=== PATIENT | male | born 1955 | race Caucasian/White ===

== ENCOUNTER 2021-12-16 11:04 | Emergency (ER) | payer MEDICARE, SELFPAY ==
[2021-12-16] VITALS (7 sets, daily range): BP systolic 210–258; BP diastolic 89–122; PULSE 52–71; RESP 16–18; TEMP 36.6; O2SAT 95–100; BMI 20.3
--- NOTE | 2021-12-16 11:14 | PC.NURSE ---
TARAS STOLL at
--- NOTE | 2021-12-16 11:26 | ECG_ITS ---
APPROVED REPORT Exam: Resting ECG HR:53 bpm ECG Measurements Heart Rate 53 AXES GA 185 P 52 QRSd 94 QRS -25 QT 421 T 49 QTc 403 Conclusion SINUS BRADYCARDIA BORDERLINE LEFT AXIS DEVIATION [QRS AXIS < -20] BORDERLINE ECG UNCONFIRMED REPORT Electronically signed by : Buddy Zarate MD 12/16/2021 22:34:32
--- NOTE | 2021-12-16 12:23 | [facility].EDGENADL ---
Discharge Plan Disposition Patient Disposition: Home, Self-Care Condition: Good Prescriptions Prescriptions: New lisinopril 20 mg tablet 20 mg PO DAILY Qty: 30 0RF Referrals Follow up/Referrals: Provider,Referral, MD [Primary Care Provider] - See instructions Clinical Impressions Clinical Impression: Asymptomatic hypertension Discharge ED Provider: Jaxon Mcclellan General Adult HPI General Chief complaint: Recheck/Abnormal Lab/Rx Stated complaint: high blood pressure Time Seen by Provider: 12/16/21 11:10 Mode of Arrival: Ambulatory Source of Information: Patient Limitations: No Limitations Description of Symptoms (Recalled from ER Triage Doc. by RN): to ed per pvt car with c/o elevated blood pressure pt was seen at clinic and told to come to ed due to b/p was to high. pt states he took his lisinopril 20mg this am. pt denies any c/o at present History of Present Illness HPI narrative: This 66-year-old male with history of hypertension presenting with asymptomatic hypertension. Patient went to clinic today, told his blood pressure was too high, so told to come to the ED. Patient denies any symptoms at this time, including chest pain, shortness of breath, neurologic deficits, weakness, or any other concerns. Related Data Previous Rx's Medication Instructions Recorded lisinopril 20 mg tablet 20 mg PO DAILY #30 tabs 12/16/21 Allergies Allergy/AdvReac Type Severity Reaction Status Date / Time No Known Allergies Allergy Verified 12/16/21 11:17 [facility] Social History Smoking Status: Current every day smoker alcohol intake: never current occupational status: unemployed Travel in the last 8 weeks: None ROS Obtained: Yes All systems reviewed & no additional complaints except as documented Physical Exam General General appearance: alert and in no apparent distress Head Head exam: atraumatic, normocephalic and normal inspection Eye Eye exam: Present normal appearance, PERRL and EOMI ENT ENT exam: Present normal exam, normal oropharynx, mucous membranes moist, TM's normal bilaterally and normal external ear exam Neck Neck exam: Present normal inspection, full ROM and trachea midline; Absent meningismus or lymphadenopathy Chest Chest inspection: Present normal inspection and symmetric chest wall rise; Absent tenderness Respiratory Respiratory exam: Present normal lung sounds bilaterally; Absent respiratory distress Cardiovascular Cardiovascular exam: Present regular rate and normal rhythm; Absent JVD Abdominal Exam Abdominal exam: Present soft and normal bowel sounds; Absent distention, tenderness or guarding Extremities Exam Extremities exam: Present normal inspection, full ROM and normal capillary refill; Absent calf tenderness Back Exam Back exam: Present normal inspection; Absent tenderness Neurological Exam Neurological exam: Present alert and oriented X3 Psychiatric Psychiatric exam: Present normal affect and normal mood Skin Skin exam: Present warm, dry, intact and normal color Lymphatic Lymphatic Findings: no adenopathy Medical Decision Making Mal Inquiry Pt receiving controlled substance: No Vital Signs: 12/16/21 11:06 12/16/21 11:11 12/16/21 11:31 Temperature 98 F Temperature Source Oral Pulse Rate 62 71 Pulse Rate [Radial] 68 Respiratory Rate 16 18 Blood Pressure 251/107 H 225/100 H Blood Pressure [Left Arm] 258/122 H Blood Pressure [Right Arm] 251/107 H Blood Pressure Mean 140 141 Blood Pressure Mean [Left Arm] 167 Blood Pressure Mean [Right Arm] 155 Blood Pressure Position [Left Arm] Sitting Blood Pressure Position [Right Arm] Sitting 02 Sat by Pulse Oximetry 98 96 95 Oxygen Delivery Method Room Air Medical Decision Narrative: This is a 66-year-old male with history of hypertension presenting with asymptomatic hypertension. on arrival, patient hemodynamically stable, alert, oriented, moving all extremities spontaneously, pupi
== END 2021-12-16 12:39 | disposition home or self-care (01) ==
PROVIDERS: Emergency Provider Emergency Medicine
DX: I10 Essential (primary) hypertension (principal); F17.200 Nicotine dependence, unspecified, uncomplicated
CPT/HCPCS: 93005; 99283